=== PATIENT | male | born 1970 | race African-American/Black ===

== ENCOUNTER 2017-09-25 04:02 | Inpatient (IN) | payer SELFPAY ==
[2017-09-25] VITALS (7 sets, daily range): BP systolic 140–176; BP diastolic 70–101; PULSE 99–110; RESP 14–24; TEMP 95.4–98.6; O2SAT 95–99
[~2017-09-25] VITALS: Ht 167.6 cm; Wt 114.6 kg
[~2017-09-25 04:02] MED LIST: B12-1CHW CHEW; CALA240T PO; CELL500T PO; CLON.1 PO; COZA100T PO; EMPA1TAB3; HYDR50TA5 PO; POTA1TAB77; PRIL20CA PO; PROT40TA PO; REST30CA PO; TAB-TAB PO; TOPR25TA2 PO; TRAM100T19 PO
[2017-09-25] MEDS ORDERED: MYCO500 PO (04:19)
[2017-09-25] MEDS ORDERED: TURM500C7 PO (04:27)
[2017-09-25] MEDS ORDERED: CHOL5000 PO (04:27)
[2017-09-25] MEDS ORDERED: SODIUM CHLOR 0.9% 1000 ML INJ 1,000 ML IV ONE (04:30)
[2017-09-25] MEDS ORDERED: KETOROLAC TROMETHAMINE 30 MG/ML (IVP) VIAL IV PUSH ONE (04:30)
[2017-09-25] MEDS ORDERED: methylPREDNISolone SOD SUCC 125 MG/2 ML VIAL IV PUSH ONE (04:30)
[2017-09-25] MEDS ORDERED: MORPHINE SULFATE 4 MG/ML INJ IV PUSH ONE (05:00)
[2017-09-25] MEDS ORDERED: ONDANSETRON HCL 4 MG/2 ML VIAL ONE (05:06)
[2017-09-25 05:07] LABS: AUTOMATED NEUTROPHIL # 3.9 TH/MM3 (1.8-7.7); BASOPHIL % 0.7 % (0.0-2.0); EOSINOPHIL # 0.1 TH/MM3 (0-0.4); EOSINOPHIL % 1.7 % (0.0-4.0); HEMATOCRIT 42.7 % (39.0-51.0); HEMO FLAGS DIFF FINAL; LYMPH % 23.8 % (9.0-44.0); LYMPHOCYTE # 1.5 TH/MM3 (1.0-4.8); MEAN CELL VOLUME 89.4 FL (80.0-100.0); MEAN CORPUSCULAR HGB CONC 34.7 % (32.0-36.0); MONO % 10.9 % (0.0-8.0); NEUT % 62.9 % (16.0-70.0); PLATELET COUNT 195 TH/MM3 (150-450); RED BLOOD COUNT 4.78 MIL/MM3 (4.50-5.90); RED CELL DISTRIBUTION WIDTH 14.6 % (11.6-17.2); WHITE BLOOD COUNT 6.1 TH/MM3 (4.0-11.0)
[2017-09-25 05:18] LABS: BLOOD, URINE SMALL (NEG); COMMENT (UR) CULT NOT INDICATED; CULTURE IF INDICATED CULT NOT INDICATED; GLUCOSE,URINE 1000 mg/dL (NEG); KETONE, URINE 80 mg/dL (NEG); MUCUS URINE FEW /lpf (OCC); NITRITE,URINE NEG (NEG); PH, URINE 5.5 (5.0-8.5); SQUAMOUS EPITHELIAL CELL URINE <1 /hpf (0-5); URINE COLOR YELLOW (YELLW/STRAW)
[2017-09-25 05:38] LABS: ALKALINE PHOSPHATASE 147 U/L (45-117); ALT (GPT) 44 U/L (12-78); ANION GAP 17 MEQ/L (5-15); AST (GOT) 69 U/L (15-37); BICARBONATE 23.2 MEQ/L (21.0-32.0); BLOOD UREA NITROGEN 17 MG/DL (7-18); CHLORIDE 84 MEQ/L (98-107); CREATINE KINASE 583 U/L (39-308); GLOMERULAR FILTRATION RATE 101 ML/MIN (>89); TOTAL BILIRUBIN ADULT 0.6 MG/DL (0.2-1.0)
[2017-09-25 05:45] LABS: SODIUM (NA) 124 MEQ/L (136-145)
[2017-09-25 06:02] LABS: CKMB 9.2 NG/ML (0.5-3.6)
[2017-09-25] MEDS ORDERED: POTASSIUM CHLORIDE 10 MEQ CONTROLLED RELEASE TAB PO ONE ×2 (06:15→10:00)
--- NOTE | 2017-09-25 07:23 | PD ---
HPI Chief Complaint: Musculoskeletal Complaint Time Seen by Provider: 04:10 Travel History International Travel<30 days: No Contact w/Intl Traveler<30days: No Traveled to known affect area: No History of Present Illness HPI Patient is a 47-year-old male comes in complaining of a lupus flare. He says he has not been able to get his medications because of insurance issues. He complains of muscle pains. He denies fever or chills. He says his legs have been spasming as well as back. He says he just feels very weak and tired all the time. He denies chest pain or shortness of breath. PFSH Past Medical History Autoimmune Disease: Yes (Rheumatoid arthritis, sharps syndrome, Lupus ) Cancer: No Cardiovascular Problems: No Diabetes: Yes Patient Takes Glucophage: No Diminished Hearing: No Gastrointestinal Disorders: Yes GERD: Yes Hypertension: Yes Immune Disorder: Yes (Lupus) Musculoskeletal: No Neurologic: No Psychiatric: No Respiratory: No Immunizations Current: Yes Social History Alcohol Use: Yes (SOCIAL) Tobacco Use: No (QUIT 7 YEARS AGO) Substance Use: No Allergies-Medications (Allergen,Severity, Reaction): Coded Allergies: diatrizoate meglumine (Unverified Allergy, Intermediate, HIVES/NAUSEA, ) gadobenic acid (Unverified Allergy, Intermediate, HIVES/NAUSEA, 06/15/17) gadodiamide (Unverified Allergy, Intermediate, HIVES/NAUSEA, 06/15/17) gadoteridol (Unverified Allergy, Intermediate, HIVES/NAUSEA, 06/15/17) iodixanol (Unverified Allergy, Intermediate, HIVES/NAUSEA, 06/15/17) iohexol (Unverified Allergy, Intermediate, HIVES/NAUSEA, 06/15/17) Reported Meds & Prescriptions Reported Meds & Active Scripts Active Protonix (Pantoprazole Sodium) 40 Mg Tabdr 40 Mg PO DAILY Restoril 30 mg (Temazepam) 30 Mg Cap 1 Cap PO HS Reported Turmeric (Turmeric Root Extract) 500 Mg Capsule 1,000 Mg PO DAILY Vitamin D3 (Cholecalciferol) 5,000 Unit Cap 5,000 Units PO DAILY Cellcept (Mycophenolate Mofetil) 500 Mg Tab 1,500 Mg PO BID Verapamil Hcl Er (Verapamil HCl) 240 Mg Tab 240 Mg PO DAILY Catapres 0.1 mg (Clonidine HCl) 0.1 Mg Tab 1 Tab PO BID K-Tab (Potassium Chloride) 8 Meq Tab Hydrochlorothiazide 50 Mg Tab 50 Mg PO DAILY Jardiance (Empagliflozin) 25 Mg Tab Multivitamin (Multivitamins) 1 Tab Tab 1 Tab PO DAILY Cozaar (Losartan Potassium) 100 Mg Tab 100 Mg PO DAILY Toprol Xl (Metoprolol Succinate) 25 Mg Tabcr 25 Mg PO BID Review of Systems Except as stated in HPI: all other systems reviewed are Neg General / Constitutional: No: Fever, Chills HENT: No: Headaches, Lightheadedness Cardiovascular: No: Chest Pain or Discomfort Respiratory: No: Shortness of Breath Gastrointestinal: No: Nausea, Vomiting, Abdominal Pain Musculoskeletal: Positive: Myalgias Neurologic: No: Weakness, Dizziness Physical Exam Narrative GENERAL: Awake and alert, in no acute distress. SKIN: Focused skin assessment warm/dry. HEAD: Atraumatic. Normocephalic. EYES: Pupils equal and round. No scleral icterus. ENT: Mucous membranes pink and moist. NECK: Trachea midline. No JVD. CARDIOVASCULAR: Regular rate and rhythm. No murmur appreciated. RESPIRATORY: No accessory muscle use. Clear to auscultation. Breath sounds equal bilaterally. GASTROINTESTINAL: Abdomen soft, non-tender, nondistended. MUSCULOSKELETAL: No obvious deformities. No clubbing. No cyanosis. No edema. NEUROLOGICAL: Awake and alert. No obvious cranial nerve deficits. Motor grossly within normal limits. Normal speech. PSYCHIATRIC: Appropriate mood and affect; insight and judgment normal. Data Data Last Documented VS Vital Signs Date Time Temp Pulse Resp B/P (MAP) Pulse Ox O2 Delivery O2 Flow Rate FiO2 09/25/17 07:16 101 14 146/71 (96) 99 Room Air 09/25/17 04:04 97.6 Orders Orders Iv Access Insert/Monitor (09/25/17 04:25) Complete Blood Count With Diff (09/25/17 04:25) Comprehensive Metabolic Panel (09/25/17 04:25) Creatine Kinase (Cpk) (09/25/17 04:25) Urinalysis - C+S If Indicated (09/25/17 04:25) Sodium Chlor 0.9% 1000 Ml Inj (Ns 1000 M (09/25/17 04:30) Methylprednisolone So Succ Inj (Solumedr (09/25/17 04:30) Ketorolac Inj (Toradol Inj) (09/25/17 04:30) Morphine Inj (Morphine Inj) (09/25/17 05:00) Ondansetron Inj (Zofran Inj) (09/25/17 05:06) CKMB (09/25/17 04:46) CKMB% (09/25/17 04:46) Potassium Chloride (Kcl) (09/25/17 06:15) Labs Laboratory Tests Test 09/25/17 04:46 09/25/17 05:07 White Blood Count 6.1 TH/MM3 Red Blood Count 4.78 MIL/MM3 Hemoglobin 14.8 GM/DL Hematocrit 42.7 % Mean Corpuscular Volume 89.4 FL Mean Corpuscular Hemoglobin 31.0 PG Mean Corpuscular Hemoglobin Concent 34.7 % Red Cell Distribution Width 14.6 % Platelet Count 195 TH/MM3 Mean Platelet Volume 10.3 FL Neutrophils (%) (Auto) 62.9 % Lymphocytes (%) (Auto) 23.8 % Monocytes (%) (Auto) 10.9 % Eosinophils (%) (Auto) 1.7 % Basophils (%) (Auto) 0.7 % Neutrophils # (Auto) 3.9 TH/MM3 Lymphocytes # (Auto) 1.5 TH/MM3 Monocytes # (Auto) 0.7 TH/MM3 Eosinophils # (Auto) 0.1 TH/MM3 Basophils # (Auto) 0.0 TH/MM3 CBC Comment DIFF FINAL Differential Comment Blood Urea Nitrogen 17 MG/DL Creatinine 0.97 MG/DL Random Glucose 222 MG/DL Total Protein 9.1 GM/DL Albumin 3.6 GM/DL Calcium Level 9.9 MG/DL Alkaline Phosphatase 147 U/L Aspartate Amino Transf (AST/SGOT) 69 U/L Alanine Aminotransferase (ALT/SGPT) 44 U/L Total Bilirubin 0.6 MG/DL Sodium Level 124 MEQ/L Potassium Level 3.0 MEQ/L Chloride Level 84 MEQ/L Carbon Dioxide Level 23.2 MEQ/L Anion Gap 17 MEQ/L Estimat Glomerular Filtration Rate 101 ML/MIN Total Creatine Kinase 583 U/L Creatine Kinase MB 9.2 NG/ML Creatine Kinase MB % 1.6 % Urine Color YELLOW Urine Turbidity CLEAR Urine pH 5.5 Urine Specific [place] 1.030 Urine Protein 30 mg/dL Urine Glucose (UA) 1000 mg/dL Urine Ketones 80 mg/dL Urine Occult Blood SMALL Urine Nitrite NEG Urine Bilirubin NEG Urine Urobilinogen LESS THAN 2.0 MG/DL Urine Leukocyte Esterase NEG Urine RBC 1 /hpf Urine WBC 2 /hpf Urine Squamous Epithelial Cells <1 /hpf Urine Mucus FEW /lpf Microscopic Urinalysis Comment CULT NOT INDICATED MDM Medical Decision Making Medical Screen Exam Complete: Yes Emergency Medical Condition: Yes Medical Record Reviewed: Yes Differential Diagnosis Rhabdomyolysis versus hyperkalemia versus renal failure versus lupus flare Narrative Course Patient is a 47-year-old male who comes in complaining of muscle spasms and possible lupus flare. Exam shows no acute abnormality. IV established, labs sent. Labs show sodium of 124. Patient given IV fluids, Toradol. Potassium is 3.0 this was replaced. Patient given morphine for pain. Given a dose of steroids. Patient will be admitted for hyponatremia. Diagnosis Primary Impression: SLE (systemic lupus erythematosus) Qualified Codes: M32.9 - Systemic lupus erythematosus, unspecified Additional Impression: Hyponatremia Admitting Information Admitting Physician Requests: Admit Catalina Mcelroy MD Sep 25, 2017 07:23
[2017-09-25] MEDS ORDERED: CYCL10TA PO (07:26)
[2017-09-25] MEDS ORDERED: LOSA100T PO (07:26)
[2017-09-25] MEDS ORDERED: POTA10TA2 PO (07:26)
[2017-09-25] MEDS ORDERED: OMEP20CA2 PO (07:26)
[2017-09-25] MEDS ORDERED: CLON0.1T PO (07:26)
[2017-09-25] MEDS ORDERED: EMPA1TAB3 PO (07:26)
[2017-09-25] MEDS ORDERED: TEMA30CA PO (07:26)
[2017-09-25] MEDS ORDERED: HYDR25TA5 PO (07:26)
[2017-09-25] MEDS ORDERED: METO1TAB9 PO (07:26)
[2017-09-25] MEDS ORDERED: MULT-65 PO (07:26)
[2017-09-25] MEDS ORDERED: PRED1 PO (07:26)
[2017-09-25] MEDS ORDERED: VERA1TAB17 PO (07:26)
[2017-09-25] MEDS: SODIUM CHLOR 0.9% 1000 ML INJ 1,000 ML IV SCH ×2 (07:58→17:52)
[2017-09-25] MEDS ORDERED: ONDANSETRON HCL 4 MG/2 ML VIAL IV PUSH PRN (09:45)
[2017-09-25] MEDS ORDERED: GLUCAGON 1 MG/ML VIAL OTHER PRN (09:45)
[2017-09-25] MEDS ORDERED: DEXTROSE 50% IN WATER 50 ML VIAL(D50) IV PUSH PRN (09:45)
--- NOTE | 2017-09-25 09:54 | HHI.HP ---
[facility] Primary Care Physician No Primary Care Physician Admission Diagnosis Hyponatremia, lupus flare Diagnoses: (1) Hyponatremia Diagnosis: Principal Chief Complaint: ' I'm feeling weak'. Travel History International Travel<30 Days: No Contact w/Intl Traveler <30 Da: No Traveled to Known Affected Are: No History of Present Illness patient is a 47 y/o male with history of lupus, hypertension and diabetes who presented to ER stating that he's been feeling weak. he says that he's been on Cellcept but because of his insurance issue he couldn't afford it and he's been off this medication for the past three weeks. he says that for the past few weeks, he's been feeling weak and on and off lethargic and couldn't function at work . he says that he has ' this squeezing type of pain to his muscles'. the symptoms got worse last night which made him to come to the hospital. he denies any fever, chest pain, sob,abdominal pain, nausea or dizziness.he says that he' s taking Jardiance and Metformin but couldn't afford his Jardiance and instead he increaed his metformin dosage recently. Review of Systems Constitutional: COMPLAINS OF: Fatigue, DENIES: Fever, Weight loss, Chills, Night Sweats Eyes: DENIES: Blurred vision, Diplopia, Vision loss, Double Vision Ears, nose, mouth, throat: DENIES: Tinnitus, Vertigo, Throat pain, Epistaxis Respiratory: DENIES: Apneas, Cough, Snoring, Wheezing, Hemoptysis, Sputum production, Shortness of breath Cardiovascular: DENIES: Chest pain, Palpitations, Syncope, Dyspnea on Exertion , PND, Lower Extremity Edema, Orthopnea, Claudication Gastrointestinal: DENIES: Abdominal pain, Black stools, Bloody stools, Constipation, Diarrhea, Nausea, Vomiting, Difficulty Swallowing, Anorexia Genitourinary: DENIES: Urinary frequency, Urgency, Hematuria, Dysuria Musculoskeletal: COMPLAINS OF: Muscle aches, DENIES: Joint pain, Stiffness, Joint Swelling Integumentary: DENIES: Rash Neurologic: DENIES: Abnormal gait, Headache, Localized weakness, Paresthesias, Seizures, Speech Problems, Tremor, Poor Balance Psychiatric: DENIES: Anxiety, Confusion, Mood changes, Depression, Hallucinations, Agitation, Suicidal Ideation, Homicidal Ideation, Delusions Past Family Social History Past Medical History lupus hypertension diabetes mellitus Past Surgical History none Reported Medications Turmeric (Turmeric Root Extract) 500 Mg Capsule 1,000 Mg PO DAILY Vitamin D3 (Cholecalciferol) 5,000 Unit Cap 5,000 Units PO DAILY Cellcept (Mycophenolate Mofetil) 500 Mg Tab 1,500 Mg PO BID Verapamil Hcl Er (Verapamil HCl) 240 Mg Tab 240 Mg PO DAILY Catapres 0.1 mg (Clonidine HCl) 0.1 Mg Tab 1 Tab PO BID K-Tab (Potassium Chloride) 8 Meq Tab Hydrochlorothiazide 50 Mg Tab 50 Mg PO DAILY Jardiance (Empagliflozin) 25 Mg Tab Multivitamin (Multivitamins) 1 Tab Tab 1 Tab PO DAILY Cozaar (Losartan Potassium) 100 Mg Tab 100 Mg PO DAILY Toprol Xl (Metoprolol Succinate) 25 Mg Tabcr 25 Mg PO BID Allergies: Coded Allergies: diatrizoate meglumine (Unverified Allergy, Intermediate, HIVES/NAUSEA, ) gadobenic acid (Unverified Allergy, Intermediate, HIVES/NAUSEA, 09/25/17) gadodiamide (Unverified Allergy, Intermediate, HIVES/NAUSEA, 09/25/17) gadoteridol (Unverified Allergy, Intermediate, HIVES/NAUSEA, 09/25/17) iodixanol (Unverified Allergy, Intermediate, HIVES/NAUSEA, 09/25/17) iohexol (Unverified Allergy, Intermediate, HIVES/NAUSEA, 09/25/17) Active Ordered Medications Current Medications Sodium Chloride 1,000 ml @ 999 mls/hr BOLUS ONCE IV Last administered on 04:49; Start 09/25/17 at 04:30; Stop 09/25/17 at 05:30; Status DC Methylprednisolone Sodium Succinate (SoluMEDROL INJ) 125 mg ONCE ONCE IV PUSH Last administered on 09/25/17 04:49; Start 09/25/17 at 04:30; Stop 09/25/17 at 04:31; Status DC Ketorolac Tromethamine (Toradol Inj) 30 mg ONCE ONCE IV PUSH Last administered on 09/25/17 04:50; Start 09/25/17 at 04:30; Stop 09/25/17 at 04 :31; Status DC Morphine Sulfate (Morphine Inj) 4 mg ONCE ONCE IV PUSH ; Start 09/25/17 at 05: 00; Stop 09/25/17 at 05:01; Status DC Ondansetron HCl (Zofran Inj) 4 mg STK-MED ONCE .ROUTE ; Start 09/25/17 at 05:06 ; Stop 09/25/17 at 05:07; Status DC Potassium Chloride (KCl) 30 meq ONCE ONCE PO Last administered on 09/25/17 07:14; Start 09/25/17 at 06:15; Stop 09/25/17 at 06:16; Status DC Sodium Chloride 1,000 ml @ 100 mls/hr Q10H IV Last administered on 09/25/17 07:58; Start 09/25/17 at 08:00 Potassium Chloride (KCl) 40 meq ONCE ONCE PO ; Start 09/25/17 at 10:00; Stop 09/25/17 at 10:01 Influenza Virus Vaccine (Flu (Quadrivalent) Vaccine Inj) 0.5 ml ONCE ONCE IM ; Start 09/26/17 at 10:00; Stop 09/26/17 at 10:01 Family History arthritis in father. Social History quit smoking years ago and doesn't drink. Physical Exam Vital Signs Vital Signs Date Time Temp Pulse Resp B/P (MAP) Pulse Ox O2 Delivery O2 Flow Rate FiO2 09/25/17 09:00 09/25/17 08:50 95.4 105 20 141/76 (97) 97 09/25/17 07:16 101 14 146/71 (96) 99 Room Air 09/25/17 04:04 97.6 110 20 176/94 (121) 99 Physical Exam GENERAL: This is a well-nourished, well-developed patient, in no apparent distress. SKIN: No rashes, ecchymoses or lesions. Cool and dry. HEAD: Atraumatic. Normocephalic. No temporal or scalp tenderness. EYES: Pupils equal round and reactive. Extraocular motions intact. No scleral icterus. No injection or drainage. ENT: Nose without bleeding, purulent drainage or septal hematoma. Throat without erythema, tonsillar hypertrophy or exudate. Uvula midline. Airway patent. NECK: Trachea midline. No JVD or lymphadenopathy. Supple, nontender, no meningeal signs. CARDIOVASCULAR: Regular rate and rhythm without murmurs, gallops, or rubs. RESPIRATORY: Clear to auscultation. Breath sounds equal bilaterally. No wheezes , rales, or rhonchi. GASTROINTESTINAL: Abdomen soft, non-tender, nondistended. No hepato-splenomegaly , or palpable masses. No guarding. MUSCULOSKELETAL: Extremities without clubbing, cyanosis, or edema. No joint tenderness, effusion, or edema noted. No calf tenderness. Negative Homans sign bilaterally. NEUROLOGICAL: Awake and alert. Cranial nerves II through XII intact. Motor and sensory grossly within normal limits. Five out of 5 muscle strength in all muscle groups. Normal speech. Laboratory Laboratory Tests Test 09/25/17 04:46 09/25/17 05:07 White Blood Count 6.1 Red Blood Count 4.78 Hemoglobin 14.8 Hematocrit 42.7 Mean Corpuscular Volume 89.4 Mean Corpuscular Hemoglobin 31.0 Mean Corpuscular Hemoglobin Concent 34.7 Red Cell Distribution Width 14.6 Platelet Count 195 Mean Platelet Volume 10.3 Neutrophils (%) (Auto) 62.9 Lymphocytes (%) (Auto) 23.8 Monocytes (%) (Auto) 10.9 Eosinophils (%) (Auto) 1.7 Basophils (%) (Auto) 0.7 Neutrophils # (Auto) 3.9 Lymphocytes # (Auto) 1.5 Monocytes # (Auto) 0.7 Eosinophils # (Auto) 0.1 Basophils # (Auto) 0.0 CBC Comment DIFF FINAL Differential Comment Blood Urea Nitrogen 17 Creatinine 0.97 Random Glucose 222 Total Protein 9.1 Albumin 3.6 Calcium Level 9.9 Alkaline Phosphatase 147 Aspartate Amino Transf (AST/SGOT) 69 Alanine Aminotransferase (ALT/SGPT) 44 Total Bilirubin 0.6 Sodium Level 124 Potassium Level 3.0 Chloride Level 84 Carbon Dioxide Level 23.2 Anion Gap 17 Estimat Glomerular Filtration Rate 101 Total Creatine Kinase 583 Creatine Kinase MB 9.2 Creatine Kinase MB % 1.6 Urine Color YELLOW Urine Turbidity CLEAR Urine pH 5.5 Urine Specific [place] 1.030 Urine Protein 30 Urine Glucose (UA) 1000 Urine Ketones 80 Urine Occult Blood SMALL Urine Nitrite NEG Urine Bilirubin NEG Urine Urobilinogen LESS THAN 2.0 Urine Leukocyte Esterase NEG Urine RBC 1 Urine WBC 2 Urine Squamous Epithelial Cells <1 Urine Mucus FEW Microscopic Urinalysis Comment CULT NOT INDICATED Result Diagram: 09/25/1744509/25/17445 Caprini VTE Risk Assessment Caprini VTE Risk Assessment: Mod/High Risk (score >= 2) Caprini Risk Assessment Model Point Value = 1 Point Value = 2 Point Value = 3 Point Value = 5 Age 41-60 Minor surgery BMI > 25 kg/m2 Swollen legs Varicose veins or History of unexplained or recurrent spontaneous Oral contraceptives or hormone replacement Sepsis (< 1 month) Serious lung disease, including pneumonia (< 1 month) Abnormal pulmonary function Acute myocardial infarction Congestive heart failure (< 1 month) History of inflammatory bowel disease Medical patient at bed rest Age 61-74 Arthroscopic surgery Major open surgery (> 45 min) Laparoscopic surgery (> 45 min) Malignancy Confined to bed (> 72 hours) Immobilizing plaster cast Central venous access Age >= 75 History of VTE Family history of VTE Factor V Leiden Prothrombin [id number] Lupus anticoagulant Anticardiolipin antibodies Elevated serum homocysteine Heparin-induced thrombocytopenia Other congenital or acquired thrombophilia Stroke (< 1 month) Elective arthroplasty Hip, pelvis, or leg fracture Acute spinal cord injury (< 1 month) Prophylaxis Regimen Total Risk Factor Score Risk Level Prophylaxis Regimen 0-1 Low Early ambulation 2 Moderate Order ONE of the following: *Sequential Compression Device (SCD) *Heparin 5000 units SQ BID 3-4 Higher Order ONE of the following medications: *Heparin 5000 units SQ TID *Enoxaparin/Lovenox 40 mg SQ daily (WT < 150 kg, CrCl > 30 mL/min) *Enoxaparin/Lovenox 30 mg SQ daily (WT < 150 kg, CrCl > 10-29 mL/min) *Enoxaparin/Lovenox 30 mg SQ BID (WT < 150 kg, CrCl > 30 mL/min) AND/OR *Sequential Compression Device (SCD) 5 or more Highest Order ONE of the following medications: *Heparin 5000 units SQ TID (Preferred with Epidurals) *Enoxaparin/Lovenox 40 mg SQ daily (WT < 150 kg, CrCl > 30 mL/min) *Enoxaparin/Lovenox 30 mg SQ daily (WT < 150 kg, CrCl > 10-29 mL/min) *Enoxaparin/Lovenox 30 mg SQ BID (WT < 150 kg, CrCl > 30 mL/min) AND *Sequential Compression Device (SCD) Assessment and Plan Assessment and Plan A/P - hyponatremia continue with NS- check urine and sodium osmolality, urine sodium and TSH- monitor the sodium level closely- hold HCTZ -lupus- non-compliant with the meds received a dose of IV steroid in ER- resume Cellcept- check C3/C4/ds-DNA- ESR and CRP. -hypertension; hold HCTZ- resume other home meds- will monitor BP and adjust the regimen as needed. -diabetes mellitus; non-compliant- start on accu-check with SSI- check A1c -mild rhabdomyolysis- on IV fluid- check CPK in am. -hypokalemia; will replace and monitor -DVT prophylaxis with subq Lovenox. - will consult case management to assist with outpatient meds. Discussed Condition With ER physician, the patient and RN. Physician Certification 2 Midnight Certification Type: Admission for Inpatient Services Order for Inpatient Services The services are ordered in accordance with Medicare regulations or non- Medicare payer requirements, as applicable. In the case of services not specified as inpatient-only, they are appropriately provided as inpatient services in accordance with the 2-midnight benchmark. Estimated LOS (days): 2 days is the estimated time the patient will need to remain in the hospital, assuming treatment plan goals are met and no additional complications. Post-Hospital Plan: Home Petrona Vega MD Sep 25, 2017 09:54
[2017-09-25] MEDS: CYCLOBENZAPRINE HCL 10 MG TAB PO PRN (11:17)
[2017-09-25] MEDS: MYCOPHENOLATE MOFETIL 500 MG TAB PO SCH ×2 (11:17→17:51)
[2017-09-25] MEDS: PILL SPLITTER OTHER PRN (11:25)
[2017-09-25] MEDS: INSULIN NovoLIN REGULAR SUPPLEMENTAL SCALE SQ SCH ×3 (11:25→21:38)
[2017-09-25] MEDS ORDERED: MYCOPHENOLATE MOFETIL 500 MG TAB PO SCH (18:00)
[2017-09-25 20:26] LABS: SODIUM (NA) 124 MEQ/L (136-145)
[2017-09-25] MEDS: cloNIDine HCL 0.1 MG TAB PO SCH (20:53)
[2017-09-25] MEDS: TEMAZEPAM 15 MG CAP PO SCH (20:53)
[2017-09-25] MEDS: METOPROLOL SUCCINATE 50 MG EXTENDED RELEASE TAB PO SCH (20:53)
[2017-09-26] MEDS ORDERED: INSULIN HUMAN REGULAR 1,000 UNITS/10 ML VIAL SQ ONE (00:15)
[2017-09-26 00:57] LABS: BICARBONATE 16.1 MEQ/L (21.0-32.0); POTASSIUM 3.8 MEQ/L (3.5-5.1)
[2017-09-26] MEDS: SODIUM CHLOR 0.9% 1000 ML INJ 1,000 ML IV SCH ×2 (04:53→17:39)
[2017-09-26] MEDS: MYCOPHENOLATE MOFETIL 500 MG TAB PO SCH ×2 (04:54→18:14)
[2017-09-26 08:00] VITALS: BP 182/97; PULSE 89; RESP 18; TEMP 95.5; O2SAT 100
[2017-09-26] MEDS: INSULIN NovoLIN REGULAR SUPPLEMENTAL SCALE SQ SCH ×2 (08:00→12:08)
[2017-09-26] MEDS: PILL SPLITTER OTHER PRN (08:20)
[2017-09-26] MEDS: ENOXAPARIN SODIUM 40 MG/0.4 ML SYRINGE SQ SCH (08:20)
[2017-09-26] MEDS: predniSONE 1 MG TAB PO SCH (08:21)
[2017-09-26] MEDS: MULTIVITAMIN TAB PO SCH (08:21)
[2017-09-26] MEDS: METOPROLOL SUCCINATE 50 MG EXTENDED RELEASE TAB PO SCH ×2 (08:21→20:23)
[2017-09-26] MEDS: cloNIDine HCL 0.1 MG TAB PO SCH ×2 (08:21→20:23)
[2017-09-26] MEDS: VERAPAMIL HCL 240 MG SUSTAINED RELEASE TAB PO SCH (08:22)
[2017-09-26] MEDS: PANTOPRAZOLE SOD 20 MG DELAYED RELEASE TAB PO SCH (08:22)
[2017-09-26] MEDS: CYCLOBENZAPRINE HCL 10 MG TAB PO PRN ×2 (08:22→17:39)
[2017-09-26] MEDS: ACETAMINOPHEN 325 MG TAB PO PRN ×4 (08:22→23:00)
[2017-09-26] MEDS: LOSARTAN 50 MG TAB PO SCH (08:26)
[2017-09-26] MEDS: CHOLECALCIFEROL (VIT D3) 5000 UNIT CAP PO SCH (08:26)
[2017-09-26] MEDS ORDERED: INFLUENZA VIRUS VACCINE (QUADRIVALENT) 0.5 ML SYR IM ONE (10:00)
[2017-09-26] MEDS ORDERED: INSULIN DETEMIR 100 UNITS/ML VIAL SQ ONE (10:30)
--- NOTE | 2017-09-26 10:39 | HHI.PR ---
Subjective Remarks Pt states he feels better. denies any CP/SOB/N/V. states he feels tired. RN tells me that pt told her about a tooth hurting him. I went back in and pt tells me that he brushed his tooth hard earlier and it started bleeding. been bothering him for the past 2-3 weeks. no fevers or chills. tells me that he wasn't on insulin at home. hasn't see a PCP in 1.5 years. Objective Vitals Vital Signs Date Time Temp Pulse Resp B/P (MAP) Pulse Ox O2 Delivery O2 Flow Rate FiO2 09/26/17 08:00 95.5 89 18 182/97 (125) 100 09/25/17 23:53 98.6 99 24 140/74 (96) 97 09/25/17 20:00 96.9 109 24 141/80 (100) 97 09/25/17 16:00 97.7 109 20 142/70 (94) 95 09/25/17 12:00 96.1 109 20 162/101 (121) 96 I/O 09/25/17 09/25/17 09/25/17 09/26/17 09/26/17 09/26/17 07:00 15:00 23:00 07:00 15:00 23:00 Intake Total 1000 ml 2400 ml 1960 ml Output Total 3800 ml 3800 ml Balance 1000 ml -1400 ml -1840 ml Intake Oral 2400 ml 960 ml IV Total 1000 ml 1000 ml Output Urine Total 3800 ml 3800 ml # Bowel Movements 0 0 Result Diagram: 09/25/17 0446 09/25/17 2345 Objective Remarks GENERAL: This is an obese male, laying in bed EYES: Extraocular motions intact. No scleral icterus. No injection or drainage. ENT: Nose without drainage. left lower molar with pressure I'm able to express pus. NECK: Trachea midline. CARDIOVASCULAR: Regular rate and rhythm without murmurs RESPIRATORY: Clear to auscultation. Breath sounds equal bilaterally. No wheezes GASTROINTESTINAL: Abdomen soft, non-tender, nondistended. No guarding. MUSCULOSKELETAL: Extremities without edema. NEUROLOGICAL: Awake and alert. Cranial nerves II through XII intact. Motor and sensory grossly within normal limits. Normal speech. A/P Problem List: (1) Hyponatremia ICD Code: E87.1 - Hypo-osmolality and hyponatremia Status: Acute Assessment and Plan A/P - hyponatremia continue with NS- urine and sodium osmolality wnl, urine sodium wnl and TSH low. check Free T4- monitor the sodium level closely- hold HCTZ -lupus- non-compliant with the meds received a dose of IV steroid in ER- Cellcept has been resumed- C3/C4 wnl ds- DNA- pending ESR and CRP elevated. - Dental abscess: Pt left lower molar draining pus, swollen, at this time, start pt on augmentin. Discuss the case tomorrow w Dr. 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 Pt has no insurance and would need to f/u w dentist as an outpatient but not sure if this would be feasible due to lack of insurance. -hypertension; hold HCTZ- resume other home meds- increased BB dose. will monitor BP and adjust the regimen as needed. -diabetes mellitus; non-compliant- requiring novolog SS. Will give 10 units of levemir daily and adjust. continue ISS and monitor BS closely. HbA1C pending. Pt hasn't been taking his meds due to financial problems -mild rhabdomyolysis- on IV fluid- resolved -hypokalemia; resolved -DVT prophylaxis with subq Lovenox. -case management has been consulted to assist with outpatient meds. Discharge Planning monitor sodium levels q8hrs. fluid restriction. Adjust insulin levels, f/u HbA1C discuss case w [facility] in AM Glo Martini MD Sep 26, 2017 10:39
[2017-09-26 11:13] LABS: HEMOGLOBIN A1b 1.4 %; HEMOGLOBIN F 1.9 %; HEMOGLOBIN LA1C 4.7 %; HEMOGLOBIN P3 6.3 %
[2017-09-26 12:00] VITALS: BP 129/67; PULSE 85; RESP 21; TEMP 97.1; O2SAT 99
[2017-09-26] MEDS: LACTOBACILLUS ACIDOPHILUS TAB PO SCH ×2 (12:08→17:39)
[2017-09-26] MEDS: AMOXICILLIN/CLAVULANATE K 875 MG TAB PO SCH ×2 (12:08→22:58)
[2017-09-26 12:36] LABS: BICARBONATE 18.9 MEQ/L (21.0-32.0); POTASSIUM 3.1 MEQ/L (3.5-5.1)
[2017-09-26 16:00] VITALS: BP 142/75; PULSE 93; RESP 20; TEMP 97.6; O2SAT 97
[2017-09-26] MEDS ORDERED: POTASSIUM CHLORIDE 20 MEQ CONTROLLED RELEASE TAB PO ONE (17:00)
[2017-09-26] MEDS: INSULIN ASPART SUPPLEMENTAL SCALE SQ SCH ×2 (17:38→20:21)
[2017-09-26 20:00] VITALS: BP 163/94; PULSE 99; RESP 22; TEMP 97.3; O2SAT 97
[2017-09-26 20:05] LABS: BICARBONATE 22.9 MEQ/L (21.0-32.0); POTASSIUM 3.4 MEQ/L (3.5-5.1)
[2017-09-26] MEDS: INSULIN DETEMIR 100 UNITS/ML VIAL SQ SCH (20:21)
[2017-09-26] MEDS: TEMAZEPAM 15 MG CAP PO SCH (20:23)
[2017-09-26] MEDS ORDERED: INSULIN ASPART SUPPLEMENTAL SCALE SQ SCH (21:00)
[2017-09-26 23:43] LABS: BICARBONATE 24.2 MEQ/L (21.0-32.0); POTASSIUM 3.4 MEQ/L (3.5-5.1)
[2017-09-27] VITALS: BP 131/66; PULSE 93; RESP 22; TEMP 98.8; O2SAT 98
[2017-09-27] MEDS: SODIUM CHLOR 0.9% 1000 ML INJ 1,000 ML IV SCH ×3 (04:04→20:51)
[2017-09-27] MEDS: MYCOPHENOLATE MOFETIL 500 MG TAB PO SCH ×2 (05:13→18:00)
[2017-09-27] MEDS ORDERED: INSULIN DETEMIR 100 UNITS/ML VIAL SQ SCH (07:00)
[2017-09-27 07:29] LABS: BICARBONATE 21.6 MEQ/L (21.0-32.0)
[2017-09-27 08:00] VITALS: BP 142/78; PULSE 93; RESP 18; TEMP 98.9; O2SAT 98
[2017-09-27] MEDS: INSULIN ASPART SUPPLEMENTAL SCALE SQ SCH ×4 (08:00→20:38)
[2017-09-27] MEDS ORDERED: POTASSIUM CHLORIDE 20 MEQ PWD PACKET PO ONE (08:45)
[2017-09-27] MEDS: METOPROLOL SUCCINATE 50 MG EXTENDED RELEASE TAB PO SCH ×2 (09:00→20:42)
[2017-09-27] MEDS ORDERED: POTASSIUM CHLORIDE 10 MEQ CONTROLLED RELEASE TAB PO ONE (09:00)
[2017-09-27] MEDS: PANTOPRAZOLE SOD 20 MG DELAYED RELEASE TAB PO SCH (09:01)
[2017-09-27] MEDS: ENOXAPARIN SODIUM 40 MG/0.4 ML SYRINGE SQ SCH (09:01)
[2017-09-27] MEDS: cloNIDine HCL 0.1 MG TAB PO SCH ×2 (09:01→20:42)
[2017-09-27] MEDS: predniSONE 1 MG TAB PO SCH (09:01)
[2017-09-27] MEDS: LACTOBACILLUS ACIDOPHILUS TAB PO SCH ×3 (09:01→18:00)
[2017-09-27] MEDS: MULTIVITAMIN TAB PO SCH (09:02)
[2017-09-27] MEDS: LOSARTAN 50 MG TAB PO SCH (09:02)
[2017-09-27] MEDS: CHOLECALCIFEROL (VIT D3) 5000 UNIT CAP PO SCH (09:02)
[2017-09-27] MEDS: ACETAMINOPHEN 325 MG TAB PO PRN (09:06)
[2017-09-27] MEDS: INSULIN DETEMIR 100 UNITS/ML VIAL SQ SCH ×2 (09:28→20:39)
[2017-09-27] MEDS: VERAPAMIL HCL 240 MG SUSTAINED RELEASE TAB PO SCH (09:29)
[2017-09-27 12:00] VITALS: BP 134/77; PULSE 95; RESP 16; TEMP 97.5; O2SAT 95
[2017-09-27] MEDS: AMOXICILLIN/CLAVULANATE K 875 MG TAB PO SCH (12:21)
[2017-09-27 12:46] LABS: BICARBONATE 23.1 MEQ/L (21.0-32.0); POTASSIUM 3.6 MEQ/L (3.5-5.1)
--- NOTE | 2017-09-27 14:31 | HHI.PR ---
Subjective Remarks Patient's primary complaint today is left-sided facial swelling and tooth pain. He says there is still some drainage present. No other complaints. Objective Vital Signs Date Time Temp Pulse Resp B/P (MAP) Pulse Ox O2 Delivery O2 Flow Rate FiO2 09/27/17 12:00 97.5 95 16 134/77 (96) 95 09/27/17 08:00 98.9 93 18 142/78 (99) 98 09/27/17 00:00 98.8 93 22 131/66 (87) 98 09/26/17 20:00 97.3 99 22 163/94 (117) 97 09/26/17 16:00 97.6 93 20 142/75 (97) 97 I/O 09/26/17 09/26/17 09/26/17 09/27/17 09/27/17 09/27/17 07:00 15:00 23:00 07:00 15:00 23:00 Intake Total 1960 ml 2500 ml 1348 ml Output Total 3800 ml 3400 ml 3700 ml Balance -1840 ml -900 ml -2352 ml Intake Oral 960 ml 1500 ml 240 ml IV Total 1000 ml 1000 ml 1108 ml Output Urine Total 3800 ml 3400 ml 3700 ml # Bowel Movements 0 0 0 Result Diagram: 09/25/17 0446 09/27/17 1129 Objective Remarks GENERAL: NAD, A&Ox3 HEAD: Normocephalic. MOUTH: Dental decay and broken teeth. Tissue induration at left lower jaw. NECK: Supple, trachea midline. No lymphadenopathy. EYES: No scleral icterus. No injection or drainage. CARDIOVASCULAR: Regular rate and rhythm without murmurs, gallops, or rubs. RESPIRATORY: Breath sounds equal bilaterally. No accessory muscle use. GASTROINTESTINAL: Abdomen soft, non-tender, nondistended. MUSCULOSKELETAL: No cyanosis, or edema. SKIN: Warm and dry. NEURO: No focal neurological deficitis. A/P Problem List: (1) Tooth abscess ICD Code: K04.7 - Periapical abscess without sinus (2) SLE (systemic lupus erythematosus) ICD Code: M32.9 - Systemic lupus erythematosus, unspecified Status: Chronic (3) Hyponatremia ICD Code: E87.1 - Hypo-osmolality and hyponatremia Status: Acute (4) Acute pancreatitis ICD Code: K85.90 - Acute pancreatitis without necrosis or infection, unspecified Status: Acute (5) JAMIE (obstructive sleep apnea) ICD Code: G47.33 - Obstructive sleep apnea (adult) (pediatric) Status: Chronic (6) DM (diabetes mellitus) ICD Code: E11.9 - Type 2 diabetes mellitus without complications Status: Chronic (7) ETOH abuse ICD Code: F10.10 - Alcohol abuse, uncomplicated Status: Chronic (8) HTN (hypertension) ICD Code: I10 - Essential (primary) hypertension Status: Chronic Assessment and Plan Assessment and Plan 47-year-old male admitted secondary to hyponatremia, with a dental abscess. Hyponatremia Improved Continue normal saline as needed and monitor sodium levels Lupus Continue CellCept Follow clinically Dental abscess OMF consulted Continue augmentin Start doxycycline Follow clinically for improvement Hypertension Follow blood pressures Continue beta jatin Diabetes mellitus type 2 Follow blood sugars Insulin sliding scale Diabetic diet DVT prophylaxis Lovenox Problem Qualifiers (1) SLE (systemic lupus erythematosus): Qualified Codes: M32.9 - Systemic lupus erythematosus, unspecified Yovanny Velázquez MD Sep 27, 2017 14:31
[2017-09-27 16:00] VITALS: BP 131/78; PULSE 101; RESP 18; TEMP 97.4; O2SAT 97
[2017-09-27] MEDS: CYCLOBENZAPRINE HCL 10 MG TAB PO PRN (17:08)
[2017-09-27 20:00] VITALS: BP 137/84; PULSE 113; RESP 17; TEMP 96.8; O2SAT 98
[2017-09-27] MEDS: TEMAZEPAM 15 MG CAP PO SCH (20:42)
[2017-09-27] MEDS: predniSONE 10 MG TAB PO SCH (20:43)
[2017-09-27] MEDS: DOXYCYCLINE INJ 100 MG in SODIUM CHLORIDE 0.9% INJ 100 ML IV SCH (20:45)
[2017-09-27 21:09] LABS: ALKALINE PHOSPHATASE 152 U/L (45-117); ALT (GPT) 63 U/L (12-78); ANION GAP 11 MEQ/L (5-15); AST (GOT) 124 U/L (15-37); BLOOD UREA NITROGEN 9 MG/DL (7-18); CHLORIDE 98 MEQ/L (98-107); GLOMERULAR FILTRATION RATE 141 ML/MIN (>89); MAGNESIUM 1.9 MG/DL (1.5-2.5); SODIUM (NA) 131 MEQ/L (136-145); TOTAL BILIRUBIN ADULT 0.4 MG/DL (0.2-1.0)
[2017-09-28] VITALS: BP 122/76; PULSE 104; RESP 17; TEMP 96.4; O2SAT 98
[2017-09-28] MEDS: AMOXICILLIN/CLAVULANATE K 875 MG TAB PO SCH ×3 (00:12→23:45)
[2017-09-28 05:11] LABS: AUTOMATED NEUTROPHIL # 2.2 TH/MM3 (1.8-7.7); BASOPHIL % 0.7 % (0.0-2.0); EOSINOPHIL % 0.8 % (0.0-4.0); HEMATOCRIT 36.8 % (39.0-51.0); HEMO FLAGS DIFF FINAL; LYMPH % 34.6 % (9.0-44.0); LYMPHOCYTE # 1.4 TH/MM3 (1.0-4.8); MEAN CELL VOLUME 91.6 FL (80.0-100.0); MEAN CORPUSCULAR HEMOGLOBIN 31.3 PG (27.0-34.0); MEAN CORPUSCULAR HGB CONC 34.2 % (32.0-36.0); NEUT % 54.9 % (16.0-70.0); PLATELET COUNT 126 TH/MM3 (150-450); RED BLOOD COUNT 4.01 MIL/MM3 (4.50-5.90); RED CELL DISTRIBUTION WIDTH 14.4 % (11.6-17.2)
[2017-09-28 05:42] LABS: ALKALINE PHOSPHATASE 141 U/L (45-117); ALT (GPT) 54 U/L (12-78); ANION GAP 9 MEQ/L (5-15); AST (GOT) 87 U/L (15-37); BLOOD UREA NITROGEN 8 MG/DL (7-18); CHLORIDE 101 MEQ/L (98-107); GLOMERULAR FILTRATION RATE 167 ML/MIN (>89); POTASSIUM 3.9 MEQ/L (3.5-5.1); SODIUM (NA) 134 MEQ/L (136-145); TOTAL BILIRUBIN ADULT 0.4 MG/DL (0.2-1.0)
[2017-09-28] MEDS: MYCOPHENOLATE MOFETIL 500 MG TAB PO SCH ×2 (05:44→18:00)
[2017-09-28 08:00] VITALS: BP 161/87; PULSE 98; RESP 18; TEMP 98.6; O2SAT 97
--- NOTE | 2017-09-28 08:20 | MB ---
cc: JOSE ALEJANDRO COTE DMD DATE OF CONSULTATION The patient is seen and examined September 28, 2017 REASON FOR CONSULTATION Dental abscess. HISTORY OF PRESENT ILLNESS This is a 47-year-old male who has been admitted for treatment of his lupus and electrolyte imbalance. He has not been taking his medication because he indicates that he does not have any money. I have seen and examined this patient this morning. Oral is consulted for history of dental abscess on the left mandible. He denies any fever, chills, nausea, vomiting, any shortness of breath, any difficulty breathing or difficulty swallowing. Tolerating p.o. well. He reports feeling much better after antibiotics. PAST MEDICAL HISTORY 1. Lupus. 2. Diabetes mellitus. 3. Hypertension. PAST SURGICAL HISTORY Denies. ALLERGIES IOHEXOL. IODIXANOL. GADOTERIDOL. GADODIAMIDE. GADOBENIC ACID. DIATRIZOATE MEGLUMINE. SOCIAL HISTORY Denies any alcohol, tobacco of illicit drug use. MEDICATIONS As per report - 1. Toprol XL. 1. Cozaar. 2. Jardiance. 3. Hydrochlorothiazide. 4. K-Tab. 5. Catapres. 6. Verapamil. 7. CellCept. 8. Vitamins. 9. D3. 10. Tumeric. PHYSICAL EXAMINATION VITAL SIGNS: Temperature 96.4, pulse is 104, respirations 70, blood pressure 122/76 with oxygen saturation of 98%. EXAMINATION No gross facial edema. No neck edema. No tenderness to palpation of the left side of the mandible. Intraorally the posterior molar is broken. The patient reports history of a crown that broke off. It has been there for a long time. No gross discharge noted. No elevation of floor of the mouth or the tongue that is noted. No deviation of the uvula noted. No trismus noted. Other areas of poor dentition also noted. LABORATORY DATA White count is 4.0. H&H of 12.6 and 36.8 with platelets of 126. IMPRESSION AND PLAN This is a 47-year-old male with history of hypertension, diabetes mellitus and lupus with lupus being poorly controlled. The electrolyte imbalance has been corrected here at the hospital. Longstanding chronic broken tooth left mandibular molar. No drainable collection noted. The patient is asymptomatic at this time. Plan to have the patient discharged to my office, [facility]. When he is to followup with extraction of the teeth. The patient has been counseled on the importance of having continued dental checkups. Discussed plan with the patient and he is in agreement. The patient is in no acute distress. Jose Alejandro Cote, DMD PHONE OPERATOR/SSB /7:47 AM /8:00 AM SOUMYA
[2017-09-28] MEDS: INSULIN ASPART SUPPLEMENTAL SCALE SQ SCH ×4 (08:44→20:17)
[2017-09-28] MEDS: INSULIN DETEMIR 100 UNITS/ML VIAL SQ SCH (08:44)
[2017-09-28] MEDS: ENOXAPARIN SODIUM 40 MG/0.4 ML SYRINGE SQ SCH (08:45)
[2017-09-28] MEDS: predniSONE 10 MG TAB PO SCH (08:45)
[2017-09-28] MEDS: LACTOBACILLUS ACIDOPHILUS TAB PO SCH ×3 (08:45→17:23)
[2017-09-28] MEDS: LOSARTAN 50 MG TAB PO SCH (08:45)
[2017-09-28] MEDS: METOPROLOL SUCCINATE 50 MG EXTENDED RELEASE TAB PO SCH ×2 (08:46→20:18)
[2017-09-28] MEDS: cloNIDine HCL 0.1 MG TAB PO SCH ×2 (08:46→20:18)
[2017-09-28] MEDS: MULTIVITAMIN TAB PO SCH (08:46)
[2017-09-28] MEDS: CHOLECALCIFEROL (VIT D3) 5000 UNIT CAP PO SCH (08:46)
[2017-09-28] MEDS: PANTOPRAZOLE SOD 20 MG DELAYED RELEASE TAB PO SCH (08:46)
[2017-09-28] MEDS: VERAPAMIL HCL 240 MG SUSTAINED RELEASE TAB PO SCH (08:46)
[2017-09-28] MEDS: predniSONE 1 MG TAB PO SCH (08:59)
[2017-09-28] MEDS: DOXYCYCLINE INJ 100 MG in SODIUM CHLORIDE 0.9% INJ 100 ML IV SCH ×2 (08:59→20:19)
[2017-09-28] MEDS: CHLORHEXIDINE GLUCONATE 0.12% 15 ML CUP SWISH-SPIT SCH ×2 (10:00→17:23)
[2017-09-28] MEDS ORDERED: METF1000 PO (10:38)
[2017-09-28] MEDS ORDERED: AUGM875T3 PO (10:38)
[2017-09-28] MEDS ORDERED: PRED5TAB PO (10:38)
[2017-09-28] MEDS ORDERED: DOXY50 PO (10:38)
[2017-09-28] MEDS ORDERED: DOXY100C PO (10:38)
[2017-09-28] MEDS ORDERED: MYCO500 PO ×2 (11:02→11:40)
[2017-09-28 12:00] VITALS: BP 169/94; PULSE 95; RESP 20; TEMP 97.6; O2SAT 96
--- NOTE | 2017-09-28 14:40 | HHI.PR ---
Subjective Remarks Blood sugars not controlled today. Blood sugars have increased to over 400. Despite sliding-scale there has not been much improvement in this number through time. Further adjustments in insulin are needed. Uncontrolled diabetes appears present based on his recent hemoglobin A1c of 12. Objective Vital Signs Date Time Temp Pulse Resp B/P (MAP) Pulse Ox O2 Delivery O2 Flow Rate FiO2 09/28/17 12:00 97.6 95 20 169/94 (119) 96 09/28/17 08:00 98.6 98 18 161/87 (111) 97 09/28/17 00:00 96.4 104 17 122/76 (91) 98 09/27/17 20:00 96.8 113 17 137/84 (101) 98 09/27/17 16:00 97.4 101 18 131/78 (95) 97 I/O 09/27/17 09/27/17 09/27/17 09/28/17 09/28/17 09/28/17 07:00 15:00 23:00 07:00 15:00 23:00 Intake Total 1348 ml 840 ml 889 ml Output Total 3700 ml 2400 ml 1500 ml Balance -2352 ml -1560 ml -611 ml Intake Oral 240 ml 840 ml 0 ml IV Total 1108 ml 889 ml Output Urine Total 3700 ml 2400 ml 1500 ml # Bowel Movements 0 1 Result Diagram: 09/28/1741909/28/17419 Objective Remarks GENERAL: NAD, A&Ox3 HEAD: Normocephalic. MOUTH: Dental decay and broken teeth. Tissue induration at left lower jaw. NECK: Supple, trachea midline. No lymphadenopathy. EYES: No scleral icterus. No injection or drainage. CARDIOVASCULAR: Regular rate and rhythm without murmurs, gallops, or rubs. RESPIRATORY: Breath sounds equal bilaterally. No accessory muscle use. GASTROINTESTINAL: Abdomen soft, non-tender, nondistended. MUSCULOSKELETAL: No cyanosis, or edema. SKIN: Warm and dry. NEURO: No focal neurological deficitis. A/P Problem List: (1) Tooth abscess ICD Code: K04.7 - Periapical abscess without sinus (2) SLE (systemic lupus erythematosus) ICD Code: M32.9 - Systemic lupus erythematosus, unspecified Status: Chronic (3) Hyponatremia ICD Code: E87.1 - Hypo-osmolality and hyponatremia Status: Acute (4) Acute pancreatitis ICD Code: K85.90 - Acute pancreatitis without necrosis or infection, unspecified Status: Acute (5) JAMIE (obstructive sleep apnea) ICD Code: G47.33 - Obstructive sleep apnea (adult) (pediatric) Status: Chronic (6) DM (diabetes mellitus) ICD Code: E11.9 - Type 2 diabetes mellitus without complications Status: Chronic (7) ETOH abuse ICD Code: F10.10 - Alcohol abuse, uncomplicated Status: Chronic (8) HTN (hypertension) ICD Code: I10 - Essential (primary) hypertension Status: Chronic Assessment and Plan Assessment and Plan 47-year-old male admitted secondary to hyponatremia, with a dental abscess. Blood sugars uncontrolled. Metformin resumed. NPH insulin started as this will be the treatment patient will discharge on. Hyponatremia Improved Continue normal saline as needed and monitor sodium levels Lupus Continue CellCept Follow clinically Dental abscess OMF consulted Continue augmentin Start doxycycline Follow clinically for improvement Hypertension Follow blood pressures Continue beta jatin Diabetes mellitus type 2 Follow blood sugars Insulin sliding scale Diabetic diet DVT prophylaxis Lovenox Problem Qualifiers (1) SLE (systemic lupus erythematosus): Qualified Codes: M32.9 - Systemic lupus erythematosus, unspecified Yovanny Velázquez MD Sep 28, 2017 14:40
[2017-09-28 16:00] VITALS: BP 151/90; PULSE 92; RESP 18; TEMP 97.1; O2SAT 97
[2017-09-28] MEDS: SODIUM CHLOR 0.9% 1000 ML INJ 1,000 ML IV SCH ×2 (16:00→23:45)
[2017-09-28] MEDS ORDERED: INSULIN HUMAN NPH 1,000 UNITS/10 ML VIAL SQ SCH ×2 (17:00→19:00)
[2017-09-28] MEDS: metFORMIN HCL 850 MG TAB PO SCH (17:27)
[2017-09-28 20:00] VITALS: BP 151/81; PULSE 94; RESP 17; TEMP 97.5; O2SAT 99
[2017-09-28] MEDS: TEMAZEPAM 15 MG CAP PO SCH (20:18)
[2017-09-29] VITALS: BP 136/78; PULSE 81; RESP 17; TEMP 97; O2SAT 99
[2017-09-29] MEDS: MYCOPHENOLATE MOFETIL 500 MG TAB PO SCH ×2 (05:25→17:44)
[2017-09-29] MEDS: SODIUM CHLOR 0.9% 1000 ML INJ 1,000 ML IV SCH ×2 (05:26→20:39)
[2017-09-29] MEDS ORDERED: INSULIN HUMAN NPH 1,000 UNITS/10 ML VIAL SQ SCH ×3 (07:00→19:00)
[2017-09-29 08:00] VITALS: BP 167/99; PULSE 101; RESP 17; TEMP 99.1; O2SAT 97
[2017-09-29] MEDS: LACTOBACILLUS ACIDOPHILUS TAB PO SCH ×3 (08:47→17:44)
[2017-09-29] MEDS: METOPROLOL SUCCINATE 50 MG EXTENDED RELEASE TAB PO SCH ×2 (08:48→20:40)
[2017-09-29] MEDS: cloNIDine HCL 0.1 MG TAB PO SCH ×2 (08:49→20:40)
[2017-09-29] MEDS: ENOXAPARIN SODIUM 40 MG/0.4 ML SYRINGE SQ SCH (08:49)
[2017-09-29] MEDS: CHOLECALCIFEROL (VIT D3) 5000 UNIT CAP PO SCH (08:49)
[2017-09-29] MEDS: VERAPAMIL HCL 240 MG SUSTAINED RELEASE TAB PO SCH (08:49)
[2017-09-29] MEDS: CHLORHEXIDINE GLUCONATE 0.12% 15 ML CUP SWISH-SPIT SCH ×2 (08:49→17:44)
[2017-09-29] MEDS: predniSONE 5 MG TAB PO SCH (08:49)
[2017-09-29] MEDS: PANTOPRAZOLE SOD 20 MG DELAYED RELEASE TAB PO SCH (08:49)
[2017-09-29] MEDS: LOSARTAN 50 MG TAB PO SCH (08:49)
[2017-09-29] MEDS: MULTIVITAMIN TAB PO SCH (08:49)
[2017-09-29] MEDS: INSULIN ASPART SUPPLEMENTAL SCALE SQ SCH ×4 (08:50→20:52)
[2017-09-29] MEDS: DOXYCYCLINE INJ 100 MG in SODIUM CHLORIDE 0.9% INJ 100 ML IV SCH ×2 (08:50→20:40)
[2017-09-29] MEDS: metFORMIN HCL 850 MG TAB PO SCH ×2 (09:03→17:44)
[2017-09-29 12:00] VITALS: BP 159/97; PULSE 97; RESP 18; TEMP 97.1; O2SAT 91
[2017-09-29] MEDS ORDERED: INSULIN HUMAN NPH 1,000 UNITS/10 ML VIAL SQ ONE (12:00)
[2017-09-29] MEDS: AMOXICILLIN/CLAVULANATE K 875 MG TAB PO SCH (12:09)
[2017-09-29] MEDS ORDERED: ACCUTES19 (14:35)
[2017-09-29] MEDS ORDERED: BLOO1KIT65 (14:35)
[2017-09-29] MEDS ORDERED: NOVONP2 SQ ×2 (14:35)
[2017-09-29] MEDS ORDERED: ACCUMIS25 (14:35)
--- NOTE | 2017-09-29 14:38 | HHI.PR ---
Subjective Remarks Blood sugars not yet controlled. Affect may be related to steroids. Last blood sugars are greater than 400 despite increases in insulin. Not stable for discharge. Objective Vital Signs Date Time Temp Pulse Resp B/P (MAP) Pulse Ox O2 Delivery O2 Flow Rate FiO2 09/29/17 12:00 97.1 97 18 159/97 (117) 91 09/29/17 08:00 99.1 101 17 167/99 (121) 97 09/29/17 00:00 97.0 81 17 136/78 (97) 99 09/28/17 20:00 97.5 94 17 151/81 (104) 99 09/28/17 16:00 97.1 92 18 151/90 (110) 97 I/O 09/28/17 09/28/17 09/28/17 09/29/17 09/29/17 09/29/17 07:00 15:00 23:00 07:00 15:00 23:00 Intake Total 889 ml 720 ml 2341 ml 100 ml Output Total 1500 ml 1600 ml 1500 ml Balance -611 ml -880 ml 841 ml 100 ml Intake Oral 0 ml 720 ml 240 ml IV Total 889 ml 2101 ml 100 ml Output Urine Total 1500 ml 1600 ml 1500 ml # Bowel Movements 0 Result Diagram: 09/28/1741909/28/17419 Objective Remarks GENERAL: NAD, A&Ox3 HEAD: Normocephalic. MOUTH: Dental decay and broken teeth. Tissue induration at left lower jaw. NECK: Supple, trachea midline. No lymphadenopathy. EYES: No scleral icterus. No injection or drainage. CARDIOVASCULAR: Regular rate and rhythm without murmurs, gallops, or rubs. RESPIRATORY: Breath sounds equal bilaterally. No accessory muscle use. GASTROINTESTINAL: Abdomen soft, non-tender, nondistended. MUSCULOSKELETAL: No cyanosis, or edema. SKIN: Warm and dry. NEURO: No focal neurological deficitis. A/P Problem List: (1) Tooth abscess ICD Code: K04.7 - Periapical abscess without sinus (2) SLE (systemic lupus erythematosus) ICD Code: M32.9 - Systemic lupus erythematosus, unspecified Status: Chronic (3) Hyponatremia ICD Code: E87.1 - Hypo-osmolality and hyponatremia Status: Acute (4) Acute pancreatitis ICD Code: K85.90 - Acute pancreatitis without necrosis or infection, unspecified Status: Acute (5) JAMIE (obstructive sleep apnea) ICD Code: G47.33 - Obstructive sleep apnea (adult) (pediatric) Status: Chronic (6) DM (diabetes mellitus) ICD Code: E11.9 - Type 2 diabetes mellitus without complications Status: Chronic (7) ETOH abuse ICD Code: F10.10 - Alcohol abuse, uncomplicated Status: Chronic (8) HTN (hypertension) ICD Code: I10 - Essential (primary) hypertension Status: Chronic Assessment and Plan Assessment and Plan 47-year-old male admitted secondary to hyponatremia, with a dental abscess. Blood sugars uncontrolled. Metformin resumed. NPH insulin is graduated to attempt to control blood sugars. Continue to monitor blood sugars. Adjust NPH further if needed. Hyponatremia Improved Continue normal saline as needed and monitor sodium levels Lupus Continue CellCept Follow clinically Dental abscess OMF consulted Continue augmentin Start doxycycline Follow clinically for improvement Hypertension Follow blood pressures Continue beta jatin Diabetes mellitus type 2 Follow blood sugars Insulin sliding scale Diabetic diet DVT prophylaxis Lovenox Problem Qualifiers (1) SLE (systemic lupus erythematosus): Qualified Codes: M32.9 - Systemic lupus erythematosus, unspecified Yovanny Velázquez MD Sep 29, 2017 14:38
[2017-09-29] MEDS ORDERED: cloNIDine HCL 0.1 MG TAB PO PRN (14:45)
[2017-09-29 16:00] VITALS: BP 134/84; PULSE 98; RESP 17; TEMP 97.5; O2SAT 96
[2017-09-29 20:00] VITALS: BP 165/83; PULSE 92; RESP 20; TEMP 98.2; O2SAT 96
[2017-09-29] MEDS ORDERED: TEMAZEPAM 15 MG CAP PO PRN (21:00)
[2017-09-30] VITALS: BP 148/95; PULSE 89; RESP 20; TEMP 97.9; O2SAT 96
[2017-09-30] MEDS: AMOXICILLIN/CLAVULANATE K 875 MG TAB PO SCH ×2 (00:34→12:03)
[2017-09-30] MEDS: MYCOPHENOLATE MOFETIL 500 MG TAB PO SCH ×2 (06:57→17:23)
[2017-09-30] MEDS ORDERED: INSULIN HUMAN NPH 1,000 UNITS/10 ML VIAL SQ SCH ×3 (07:00→19:00)
[2017-09-30 07:11] LABS: BASOPHIL % 0.7 % (0.0-2.0); EOSINOPHIL # 0.2 TH/MM3 (0-0.4); EOSINOPHIL % 2.4 % (0.0-4.0); HEMATOCRIT 35.4 % (39.0-51.0); HEMO FLAGS DIFF FINAL; LYMPHOCYTE # 2.7 TH/MM3 (1.0-4.8); MEAN CELL VOLUME 92.4 FL (80.0-100.0); MEAN CORPUSCULAR HEMOGLOBIN 31.1 PG (27.0-34.0); MEAN CORPUSCULAR HGB CONC 33.7 % (32.0-36.0); MONO % 5.5 % (0.0-8.0); NEUT % 48.4 % (16.0-70.0); PLATELET COUNT 157 TH/MM3 (150-450); RED BLOOD COUNT 3.83 MIL/MM3 (4.50-5.90); RED CELL DISTRIBUTION WIDTH 14.3 % (11.6-17.2); WHITE BLOOD COUNT 6.2 TH/MM3 (4.0-11.0)
[2017-09-30 07:33] LABS: ANION GAP 11 MEQ/L (5-15); AST (GOT) 173 U/L (15-37); BLOOD UREA NITROGEN 10 MG/DL (7-18); CHLORIDE 100 MEQ/L (98-107); GLOMERULAR FILTRATION RATE 150 ML/MIN (>89); POTASSIUM 3.4 MEQ/L (3.5-5.1); SODIUM (NA) 135 MEQ/L (136-145)
[2017-09-30 07:35] LABS: ALT (GPT) 86 U/L (12-78)
[2017-09-30 07:37] LABS: ALKALINE PHOSPHATASE 115 U/L (45-117); TOTAL BILIRUBIN ADULT 0.3 MG/DL (0.2-1.0)
[2017-09-30 08:00] VITALS: BP 132/86; PULSE 86; RESP 18; TEMP 97.1; O2SAT 97
[2017-09-30] MEDS: ENOXAPARIN SODIUM 40 MG/0.4 ML SYRINGE SQ SCH (08:22)
[2017-09-30] MEDS: SODIUM CHLOR 0.9% 1000 ML INJ 1,000 ML IV SCH ×2 (08:22→17:25)
[2017-09-30] MEDS: METOPROLOL SUCCINATE 50 MG EXTENDED RELEASE TAB PO SCH (08:23)
[2017-09-30] MEDS: DOXYCYCLINE INJ 100 MG in SODIUM CHLORIDE 0.9% INJ 100 ML IV SCH (08:23)
[2017-09-30] MEDS: metFORMIN HCL 850 MG TAB PO SCH ×2 (08:23→17:21)
[2017-09-30] MEDS: VERAPAMIL HCL 240 MG SUSTAINED RELEASE TAB PO SCH (08:23)
[2017-09-30] MEDS: PANTOPRAZOLE SOD 20 MG DELAYED RELEASE TAB PO SCH (08:23)
[2017-09-30] MEDS: CHOLECALCIFEROL (VIT D3) 5000 UNIT CAP PO SCH (08:23)
[2017-09-30] MEDS: LACTOBACILLUS ACIDOPHILUS TAB PO SCH ×3 (08:23→17:21)
[2017-09-30] MEDS: predniSONE 5 MG TAB PO SCH (08:24)
[2017-09-30] MEDS: LOSARTAN 50 MG TAB PO SCH (08:24)
[2017-09-30] MEDS: cloNIDine HCL 0.1 MG TAB PO SCH (08:24)
[2017-09-30] MEDS: MULTIVITAMIN TAB PO SCH (08:24)
[2017-09-30] MEDS: CHLORHEXIDINE GLUCONATE 0.12% 15 ML CUP SWISH-SPIT SCH ×2 (08:33→17:21)
[2017-09-30] MEDS: INSULIN ASPART SUPPLEMENTAL SCALE SQ SCH ×3 (09:42→15:23)
[2017-09-30] MEDS ORDERED: BAYEMIS (10:49)
[2017-09-30] MEDS ORDERED: other (10:49)
[2017-09-30] MEDS ORDERED: GLUCTES27 (10:49)
[2017-09-30] MEDS ORDERED: NOVOLOGSS SQ (10:51)
[2017-09-30] MEDS ORDERED: INSULIN ASPART 1,000 UNITS/10 ML VIAL SQ ONE (11:45)
[2017-09-30 12:00] VITALS: BP 124/71; PULSE 92; RESP 17; TEMP 96.9; O2SAT 99
[2017-09-30] MEDS ORDERED: NOVONP2 SQ ×2 (12:40)
--- NOTE | 2017-09-30 15:37 | HHI.DS ---
Discharge Summary Admission Date Sep 25, 2017 at 07:43 Discharge Date: Sep 30, 2017 Admitting Diagnosis Hyponatremia, lupus flare (1) Hyponatremia ICD Code: E87.1 - Hypo-osmolality and hyponatremia Diagnosis: Principal Status: Acute (2) DM (diabetes mellitus) ICD Code: E11.9 - Type 2 diabetes mellitus without complications Status: Chronic (3) Tooth abscess ICD Code: K04.7 - Periapical abscess without sinus (4) SLE (systemic lupus erythematosus) ICD Code: M32.9 - Systemic lupus erythematosus, unspecified Status: Chronic Procedures none Brief History - From Admission patient is a 47 y/o male with history of lupus, hypertension and diabetes who presented to ER stating that he's been feeling weak. he says that he's been on Cellcept but because of his insurance issue he couldn't afford it and he's been off this medication for the past three weeks. he says that for the past few weeks, he's been feeling weak and on and off lethargic and couldn't function at work . he says that he has ' this squeezing type of pain to his muscles'. the symptoms got worse last night which made him to come to the hospital. he denies any fever, chest pain, sob,abdominal pain, nausea or dizziness.he says that he' s taking Jardiance and Metformin but couldn't afford his Jardiance and instead he increaed his metformin dosage recently. CBC/BMP: 09/30/17 0509 09/30/17 0509 Significant Findings Laboratory Tests Test 09/27/17 19:54 09/28/17 04:20 09/30/17 05:09 Random Glucose 396 MG/DL (74-106) 276 MG/DL (74-106) 263 MG/DL (74-106) Albumin 2.7 GM/DL (3.4-5.0) 2.7 GM/DL (3.4-5.0) 2.8 GM/DL (3.4-5.0) Calcium Level 8.0 MG/DL (8.5-10.1) 8.2 MG/DL (8.5-10.1) Alkaline Phosphatase 152 U/L (45-117) 141 U/L (45-117) Aspartate Amino Transf (AST/SGOT) 124 U/L (15-37) 87 U/L (15-37) 173 U/L (15-37) Sodium Level 131 MEQ/L (136-145) 134 MEQ/L (136-145) 135 MEQ/L (136-145) Red Blood Count 4.01 MIL/MM3 (4.50-5.90) 3.83 MIL/MM3 (4.50-5.90) Hemoglobin 12.6 GM/DL (13.0-17.0) 11.9 GM/DL (13.0-17.0) Hematocrit 36.8 % (39.0-51.0) 35.4 % (39.0-51.0) Platelet Count 126 TH/MM3 (150-450) Monocytes (%) (Auto) 9.0 % (0.0-8.0) Alanine Aminotransferase (ALT/SGPT) 86 U/L (12-78) Potassium Level 3.4 MEQ/L (3.5-5.1) PE at Discharge GENERAL: This is an obese male, laying in bed EYES: Extraocular motions intact. No scleral icterus. No injection or drainage. ENT: Nose without drainage. left lower molar with pressure I'm able to express pus. NECK: Trachea midline. CARDIOVASCULAR: Regular rate and rhythm without murmurs RESPIRATORY: Clear to auscultation. Breath sounds equal bilaterally. No wheezes GASTROINTESTINAL: Abdomen soft, non-tender, nondistended. No guarding. MUSCULOSKELETAL: Extremities without edema. NEUROLOGICAL: Awake and alert. Cranial nerves II through XII intact. Motor and sensory grossly within normal limits. Normal speech. Hospital Course Mr. Desai was admitted secondary to lupus exacerbation. He had Mrs. treatments due to inability to afford medications. She also was not able to afford his diabetes treatments. Hyponatremia is present and likely secondary to uncontrolled diabetes and hyperglycemia. Steroids were provided as an acute treatment for his lupus and helped with his exacerbation. He is returned back on CellCept which he takes chronically for lupus. Likely due to the steroids, the patient had a flareup of his hyperglycemia and control was difficult. Blood sugars had been over 400 to discharge was deferred until blood sugar control improved. He change from by mouth diabetic treatments, which appeared to have lack of control as an outpatient, to insulin treatment. Additionally he had an onset of left lower jaw tooth abscess. He'll follow-up with an oral maxillofacial surgeon as an outpatient for treatment of this. Antibiotics are being provided and he will discharged on Augmentin and doxycycline for 5 more days and then maintenance doxycycline until he is to be removed. Medically stable for discharge home today. He is advised to keep a logbook to show to his PCP. Outpatient follow-up with PCP Pt Condition on Discharge: Stable Discharge Disposition: Discharge Home Discharge Time: <= 30 minutes Discharge Instructions DIET: Follow Instructions for: Diabetic Diet Activities you can perform: Regular-No Restrictions Follow up Referrals: Appointment for Follow Up Oral Maxillary Surgery - 1 Week @ [facility] with Wali Cote DMD PCP Follow-up - 2 Weeks PCP Follow-up New Medications: Amoxicillin-Clavulanate (Augmentin) 875-125 Mg Tab 1 TAB PO BID for Infection, #10 TAB 0 Refills Beulah Microlet Lancets (Beulah Microlet Lancets) 1 Mis Mis EA .ROUTE DIRECTED for Blood Sugar Management, #1 2 Refills Doxycycline Hyclate (Doxycycline Hyclate) 50 Mg Cap 50 MG PO DAILY for Infection, #30 CAP 0 Refills Start after other antibiotic treatments completed Doxycycline Hyclate (Doxycycline Hyclate) 100 Mg Cap 100 MG PO BID for Infection, #10 CAP 0 Refills Glucose Blood Test Strips (Beulah Contour Next Blood Test Strips) 1 Lyndsay Lyndsay STRIP .ROUTE DIRECTED, #1 2 Refills Metformin (Metformin) 1,000 Mg Tab 1000 MG PO BIDPC for Blood Sugar Management, #60 TAB 0 Refills Prednisone (Prednisone) 5 Mg Tab 5 MG PO DAILY for Lupus, #30 TAB 0 Refills [other] () Insulin Syringes 1 box, will use ACHS Insulin Aspart Inj (Novolog Inj) 100 Unit/Ml Inj 1 UNIT SQ ACHS SLIDING SCALE for Blood Sugar Management for 30 Days, #1 INJECTION Insulin Human NPH Inj (Novolin N Inj) 1,000 Unit/10 Ml Vial 50 UNITS SQ DAILY@0700 for Blood Sugar Management, #1 INJECTION 1 Refill Insulin Human NPH Inj (Novolin N Inj) 1,000 Unit/10 Ml Vial 30 UNITS SQ DAILY@1900 for Blood Sugar Management, #1 INJECTION 1 Refill Continued Medications: Cholecalciferol (Vitamin D3) 5,000 Unit Cap 5000 UNITS PO DAILY for Nutritional Supplement, #30 CAP 0 Refills Clonidine (Clonidine) 0.1 Mg Tab 0.1 MG PO BID Cyclobenzaprine (Flexeril) 10 Mg Tab 10 MG PO TID Hydrochlorothiazide (Hydrochlorothiazide) 25 Mg Tab 25 MG PO DAILY Losartan (Losartan) 100 Mg Tab 100 MG PO DAILY Metoprolol Succinate ER 24 HR (Metoprolol Succinate ER 24 HR) 50 Mg Tab 50 MG PO BID Multiple Vitamin (Multi-Vitamin Daily) 1 Tab Tab 1 TAB PO DAILY for Nutritional Supplement, TAB 0 Refills Mycophenolate (Cellcept) 500 Mg Tab 1500 MG PO BID for Immunosuppression for 30 Days, #180 TAB 1 Refill (This prescription has been renewed) Omeprazole (Omeprazole) 20 Mg Cap 20 MG PO DAILY Potassium Chloride ER (Potassium Chloride ER) 10 Meq Tab 10 MEQ PO BID Temazepam (Temazepam) 30 Mg Cap 30 MG PO HS Turmeric Root Extract (Turmeric) 500 Mg Capsule 1000 MG PO DAILY Verapamil HCl (Verapamil HCl Cr) 240 Mg Tab 240 MG PO DAILY Discontinued Medications: Empagliflozin (Jardiance) 25 Mg Tab 25 MG PO DAILY for Blood Sugar Management, #30 TAB 0 Refills Prednisone (Prednisone) 1 Mg Tab 1 MG PO DAILY Yovanny Velázquez MD Sep 30, 2017 15:37
[2017-10-01] MEDS ORDERED: INSULIN HUMAN NPH 1,000 UNITS/10 ML VIAL SQ SCH (07:00)
== END 2017-09-30 18:21 | disposition home or self-care (01) | DRG 545 ==
LOC: NEPE 04:02 → NEDA 07:43 → N07A 08:43
PROVIDERS: ADMIT Hospitalist; ATTEND Hospitalist
DX: M32.9 Systemic lupus erythematosus, unspecified (principal); K85.90 Acute pancreatitis without necrosis or infection, unspecified; E87.1 Hypo-osmolality and hyponatremia; E11.65 Type 2 diabetes mellitus with hyperglycemia; Z68.41 Body mass index [BMI] 40.0-44.9, adult; I10 Essential (primary) hypertension; K21.9 Gastro-esophageal reflux disease without esophagitis; M06.9 Rheumatoid arthritis, unspecified; E87.6 Hypokalemia; T45.1X6A Underdosing of antineoplastic and immunosuppressive drugs, initial encounter; S02.5XXA Fracture of tooth (traumatic), initial encounter for closed fracture; E66.9 Obesity, unspecified; K04.7 Periapical abscess without sinus; G47.33 Obstructive sleep apnea (adult) (pediatric); F10.10 Alcohol abuse, uncomplicated; Z23 Encounter for immunization; T38.0X5A Adverse effect of glucocorticoids and synthetic analogues, initial encounter; Z59.9 Problem related to housing and economic circumstances, unspecified; Z79.84 Long term (current) use of oral hypoglycemic drugs; Z87.891 Personal history of nicotine dependence; Z91.19 Patient's noncompliance with other medical treatment and regimen; Z91.120 Patient's intentional underdosing of medication regimen due to financial hardship
CPT/HCPCS: 76937; 80048; 80053; 81001; 82550; 82552; 82948; 83036; 83735; 83930; 83935; 84295; 84300; 84439; 84443; 85025; 85652; 86140; 86160; 86225; 90471; 90686; 96361; 96374; 96375; G0008; J1650; J1815; J1885; J2405; J2930; J7030; J7512; J7517; Q2038

== ENCOUNTER 2017-10-24 13:43 | Emergency (ER) | payer SELFPAY ==
[~2017-10-24] VITALS: Ht 167.6 cm; Wt 111.2 kg
[~2017-10-24 13:43] MED LIST changes: +AUGM875T3 PO; -B12-1CHW CHEW; +BAYEMIS; -CALA240T PO; -CELL500T PO; +CHOL5000 PO; -CLON.1 PO; +CLON0.1T PO; -COZA100T PO; +CYCL10TA PO; +DOXY100C PO; +DOXY50 PO; -EMPA1TAB3; +GLUCTES27; +HYDR25TA5 PO; -HYDR50TA5 PO; +LOSA100T PO; +METF1000 PO; +METO1TAB9 PO; +MULT-65 PO; +MYCO500 PO; +NOVOLOGSS SQ; +NOVONP2 SQ; +OMEP20CA2 PO; +POTA10TA2 PO; -POTA1TAB77; +PRED5TAB PO; -PRIL20CA PO; -PROT40TA PO; -REST30CA PO; -TAB-TAB PO; +TEMA30CA PO; -TOPR25TA2 PO; -TRAM100T19 PO; +TURM500C7 PO; +VERA1TAB17 PO; +other
[2017-10-24 13:45] VITALS: BP 164/92; PULSE 90; RESP 14; TEMP 97.9; O2SAT 98
[2017-10-24] MEDS ORDERED: NOVONP2 SQ ×2 (14:01)
[2017-10-24] MEDS ORDERED: NOVOLOGSS SQ (14:01)
--- NOTE | 2017-10-24 14:36 | PD ---
HPI . Refill request Chief Complaint: Medication Refill Request Time Seen by Provider: 13:54 Travel History International Travel<30 days: No Contact w/Intl Traveler<30days: No Traveled to known affect area: No History of Present Illness HPI This patient presents requesting refills of his insulin. He states that he does not have enough insulin to get him through until he sees the doctor next month. He states that he is having no symptoms related to diabetes such as blurred vision, polyuria/polydipsia, nausea/vomiting. He simply needs to have his medication refilled. PFSH Past Medical History Arthritis: Yes (spine) Autoimmune Disease: Yes (lupus) Cancer: No Cardiovascular Problems: Yes High Cholesterol: Yes Diabetes: Yes Patient Takes Glucophage: No Diminished Hearing: No Endocrine: Yes (prediabetic) Gastrointestinal Disorders: Yes GERD: Yes Genitourinary: No Headaches: Yes Hypertension: Yes Immune Disorder: Yes Musculoskeletal: Yes Neurologic: Yes Psychiatric: Yes Reproductive: No Respiratory: No Immunizations Current: Yes Past Surgical History Surgical History: No Previous Surgery Other Surgery: No Social History Alcohol Use: Yes (SOCIAL) Tobacco Use: No (QUIT 7 YEARS AGO) Substance Use: No Allergies-Medications (Allergen,Severity, Reaction): Coded Allergies: diatrizoate meglumine (Unverified Allergy, Intermediate, HIVES/NAUSEA, ) gadobenic acid (Unverified Allergy, Intermediate, HIVES/NAUSEA, 10/24/17) gadodiamide (Unverified Allergy, Intermediate, HIVES/NAUSEA, 10/24/17) gadoteridol (Unverified Allergy, Intermediate, HIVES/NAUSEA, 10/24/17) iodixanol (Unverified Allergy, Intermediate, HIVES/NAUSEA, 10/24/17) iohexol (Unverified Allergy, Intermediate, HIVES/NAUSEA, 10/24/17) Reported Meds & Prescriptions Reported Meds & Active Scripts Active Novolin N Inj (Insulin Human NPH) 1,000 Unit/10 Ml Vial 30 Units SQ DAILY@1900 Novolin N Inj (Insulin Human NPH) 1,000 Unit/10 Ml Vial 50 Units SQ DAILY@0700 Novolog Inj (Insulin Aspart) 100 Unit/Ml Inj 1 Unit SQ ACHS SLIDING SCALE 30 Days [other] Insulin Syringes 1 box, will use ACHS Beulah Contour Next Blood Test Strips (Blood Glucose Test Strips) 1 Lyndsay Lyndsay Strip .ROUTE DIRECTED Beulah Microlet Lancets 1 Mis Mis Ea .ROUTE DIRECTED Cellcept (Mycophenolate Mofetil) 500 Mg Tab 1,500 Mg PO BID 30 Days Prednisone 5 Mg Tab 5 Mg PO DAILY Doxycycline Hyclate 100 Mg Cap 100 Mg PO BID Doxycycline Hyclate 50 Mg Cap 50 Mg PO DAILY Start after other antibiotic treatments completed Augmentin (Amoxicillin-Clavulanate) 875-125 Mg Tab 1 Tab PO BID Metformin (Metformin HCl) 1,000 Mg Tab 1,000 Mg PO BIDPC Reported Multi-Vitamin Daily (Multiple Vitamin) 1 Tab Tab 1 Tab PO DAILY Flexeril (Cyclobenzaprine HCl) 10 Mg Tab 10 Mg PO TID Losartan (Losartan Potassium) 100 Mg Tab 100 Mg PO DAILY Omeprazole 20 Mg Cap 20 Mg PO DAILY Metoprolol Succinate ER 24 HR (Metoprolol Succinate) 50 Mg Tab 50 Mg PO BID Hydrochlorothiazide 25 Mg Tab 25 Mg PO DAILY Potassium Chloride ER (Potassium Chloride) 10 Meq Tab 10 Meq PO BID Verapamil HCl Cr (Verapamil HCl) 240 Mg Tab 240 Mg PO DAILY Clonidine (Clonidine HCl) 0.1 Mg Tab 0.1 Mg PO BID Temazepam 30 Mg Cap 30 Mg PO HS Turmeric (Turmeric Root Extract) 500 Mg Capsule 1,000 Mg PO DAILY Vitamin D3 (Cholecalciferol) 5,000 Unit Cap 5,000 Units PO DAILY Review of Systems Except as stated in HPI: all other systems reviewed are Neg Physical Exam Narrative GENERAL: Awake and alert and in no acute distress. SKIN: Warm and dry. HEAD: Normocephalic/atraumatic. EYES: Pupils are equal. Extraocular movements are intact. ENT: No odor of ketones. NECK: Normal range of motion. CARDIOVASCULAR: Regular rate and rhythm. RESPIRATORY: Nonlabored respirations. MUSCULOSKELETAL: Atraumatic. NEUROLOGICAL: Nonfocal. PSYCHIATRIC: Appropriate mood and affect. Data Data Last Documented VS Vital Signs Date Time Temp Pulse Resp B/P (MAP) Pulse Ox O2 Delivery O2 Flow Rate FiO2 10/24/17 14:05 10/24/17 13:45 97.9 90 14 98 Orders Orders Ed Discharge Order (10/24/17 14:01) MDM Medical Decision Making Medical Screen Exam Complete: Yes Emergency Medical Condition: Yes Differential Diagnosis Differential diagnosis of refill request includes but is not limited to poor timing with follow-up, misuse of medication, drug-seeking behavior Narrative Course This patient presents requesting a refill for his insulin. I have provided the requested refill. 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 Referrals: NO PRIMARY CARE PHYSICIAN (PCP) call for appointment Patient Instructions: General Instructions Departure Forms: Tests/Procedures Scripts Insulin Human NPH Inj (Novolin N Inj) 1,000 Unit/10 Ml Vial 30 UNITS SQ DAILY@1900 for Blood Sugar Management, #1 INJECTION 1 Refill Prov: Emma Schultz MD 10/24/17 Insulin Human NPH Inj (Novolin N Inj) 1,000 Unit/10 Ml Vial 50 UNITS SQ DAILY@0700 for Blood Sugar Management, #1 INJECTION 1 Refill Prov: Emma Schultz MD 10/24/17 Insulin Aspart Inj (Novolog Inj) 100 Unit/Ml Inj 1 UNIT SQ ACHS SLIDING SCALE for Blood Sugar Management for 30 Days, #1 INJECTION Prov: Emma Schultz MD 10/24/17 Disposition: 01 DISCHARGE HOME Condition: Stable Emma Schultz MD Oct 24, 2017 14:36
== END 2017-10-24 14:14 | disposition home or self-care (01) ==
LOC: NEPD 13:43
DX: E13.9 Other specified diabetes mellitus without complications (principal); Z76.0 Encounter for issue of repeat prescription; Z79.4 Long term (current) use of insulin
CPT/HCPCS: 99281